=== PATIENT | female | born 1960 | race Caucasian/White ===

== ENCOUNTER 2017-10-16 09:20 | Emergency (ER) | payer OTHER, MEDICARE ==
[~2017-10-16] VITALS: Ht 162.6 cm; Wt 88.5 kg
[~2017-10-16 09:20] MED LIST: ARTHRITIS PAIN650 M5 PO; CHEWABLE MULTI1 EACH PO; COUMADIN1 MG PO; COUMADIN5 MG PO; Cleocin PO; Coumadin Protocol PO; Coumadin,Jantoven PO; DIAZEPAM5 MG PO; DULCOLAX5 MG PO; Dilaudid PO; FEOSOL325 MG PO; FERROUS SULFAT325 MG PO; Flintstones PO; HYDROMORPHONE HC2 MG PO; Hyzaar 50-12.5 PO; MORPHINE SULFAT15 M1 PO; MS Contin,Oramorph S PO; Senokot S,Pericolace PO; Tylenol Regular Stre PO; Valium PO; Vicodin,Norco 5/325 PO; WARFARIN SODIUM1 MG PO; Zofran PO
[2017-10-16 10:31] LABS: BASOPHIL (%) 0.4 % (0-1); EOSINOPHIL (%) 0.5 % (0-5); EOSINOPHIL COUNT 0.1 K/uL (0-0.3); HEMATOCRIT 39.8 % (36.0-46.0); HEMOGLOBIN 13.7 G/DL (11.9-15.5); IMMATURE GRANULOCYTE (%) 1.2 % (0.0-0.7); LYMPHOCYTE (%) 12.6 % (15-42); LYMPHOCYTE COUNT 1.4 K/uL (1.0-2.8); MCH 29.7 PG (29.0-34.0); MCHC 34.4 G/DL (30.0-36.0); MCV 86.3 FL (83-99); MONOCYTE (%) 4.1 % (3-12); MONOCYTE COUNT 0.5 K/uL (0-0.8); NEUTROPHIL (%) 81.2 % (45-76); PLATELET COUNT 397 K/uL (156-360); RBC DIS.WIDTH-CV 12.6 % (11.8-14.6); RBC DIS.WIDTH-SD 39.7 % (39-53); RED BLOOD COUNT 4.61 M/uL (3.80-5.20); WHITE BLOOD COUNT 11.1 K/uL (4.1-10.2)
[2017-10-16 10:41] LABS: CHLORIDE 107 mEq/L (99-109); POTASSIUM 3.6 mEq/L (3.7-5.4); SODIUM 140 mEq/L (136-147)
[2017-10-16 10:43] LABS: GLUCOSE 120 mg/dL (70-99)
[2017-10-16 10:47] LABS: CREATININE 0.8 mg/dL (0.6-1.3); GFR ESTIMATE (CALCULATED) > 59 mL/min/; UREA NITROGEN (BUN) 22 mg/dL (9-23)
[2017-10-16 13:42] VITALS: BP 133/75
== END 2017-10-16 13:42 | disposition short-term general hospital (02) ==
LOC: EME 09:20
PROVIDERS: Emergency Medicine
DX: I60.9 Nontraumatic subarachnoid hemorrhage, unspecified (principal); I67.1 Cerebral aneurysm, nonruptured; I10 Essential (primary) hypertension; E78.5 Hyperlipidemia, unspecified; E11.9 Type 2 diabetes mellitus without complications; Z79.01 Long term (current) use of anticoagulants; F17.200 Nicotine dependence, unspecified, uncomplicated
CPT/HCPCS: 70450; 70496; 70498; 80048; 85025; 99281; 99285; J1885; J1953; J3010; J7030; J7050

== ENCOUNTER 2017-11-03 14:21 | Emergency (ER) | payer OTHER, MEDICARE ==
[~2017-11-03] VITALS: Ht 162.6 cm; Wt 84.0 kg
[2017-11-03 15:06] LABS: HEMATOCRIT 37.5 % (36.0-46.0); HEMOGLOBIN 12.9 G/DL (11.9-15.5); MCH 30.6 PG (29.0-34.0); MCHC 34.4 G/DL (30.0-36.0); MCV 88.9 FL (83-99); PLATELET COUNT 436 K/uL (156-360); RBC DIS.WIDTH-CV 13.9 % (11.8-14.6); RBC DIS.WIDTH-SD 45.1 % (39-53); RED BLOOD COUNT 4.22 M/uL (3.80-5.20); WHITE BLOOD COUNT 12.5 K/uL (4.1-10.2)
[2017-11-03 15:14] LABS: CHLORIDE 105 mEq/L (99-109); POTASSIUM 3.8 mEq/L (3.7-5.4); SODIUM 140 mEq/L (136-147)
[2017-11-03 15:15] LABS: GLUCOSE 125 mg/dL (70-99)
[2017-11-03 15:19] LABS: CREATININE 0.8 mg/dL (0.6-1.3); GFR ESTIMATE (CALCULATED) > 59 mL/min/
[2017-11-03 15:20] LABS: UREA NITROGEN (BUN) 28 mg/dL (9-23)
[2017-11-03 15:43] LABS: TROP-I INTERPRETATION NEGATIVE; TROPONIN-I < 0.01 ng/mL (0.0-0.30)
[2017-11-03 17:09] VITALS: BP 118/78
== END 2017-11-03 17:17 | disposition home or self-care (01) ==
LOC: EME 14:21
PROVIDERS: Emergency Medicine
DX: R42 Dizziness and giddiness (principal); R51 Headache; W18.30XA Fall on same level, unspecified, initial encounter; I10 Essential (primary) hypertension; I67.1 Cerebral aneurysm, nonruptured; F41.9 Anxiety disorder, unspecified; E78.5 Hyperlipidemia, unspecified; E11.9 Type 2 diabetes mellitus without complications; F32.9 Major depressive disorder, single episode, unspecified; Z79.891 Long term (current) use of opiate analgesic; Z88.5 Allergy status to narcotic agent; Z88.6 Allergy status to analgesic agent; F17.200 Nicotine dependence, unspecified, uncomplicated; I25.2 Old myocardial infarction
CPT/HCPCS: 70450; 71046; 80048; 84484; 85027; 93005; 99281; 99285

== ENCOUNTER 2017-11-05 14:09 | Emergency (ER) | payer OTHER, MEDICARE ==
[~2017-11-05] VITALS: Ht 162.6 cm; Wt 85.0 kg
[2017-11-05 15:16] LABS: HEMATOCRIT 35.7 % (36.0-46.0); HEMOGLOBIN 12.1 G/DL (11.9-15.5); MCH 30.6 PG (29.0-34.0); MCHC 33.9 G/DL (30.0-36.0); MCV 90.2 FL (83-99); PLATELET COUNT 358 K/uL (156-360); RBC DIS.WIDTH-CV 13.9 % (11.8-14.6); RBC DIS.WIDTH-SD 45.7 % (39-53); RED BLOOD COUNT 3.96 M/uL (3.80-5.20); WHITE BLOOD COUNT 9.2 K/uL (4.1-10.2)
[2017-11-05 15:26] LABS: ALBUMIN 3.9 g/dL (3.2-4.8)
[2017-11-05 15:27] LABS: CHLORIDE 104 mEq/L (99-109); POTASSIUM 4.1 mEq/L (3.7-5.4); SODIUM 140 mEq/L (136-147)
[2017-11-05 15:29] LABS: GLUCOSE 98 mg/dL (70-99); TOTAL PROTEIN 6.7 g/dL (6.4-8.3)
[2017-11-05 15:31] LABS: TOTAL BILIRUBIN 0.2 mg/dL (0.0-1.0)
[2017-11-05 15:32] LABS: ALKALINE PHOSPHATASE 55 IU/L (3-129)
[2017-11-05 15:33] LABS: CREATININE 0.7 mg/dL (0.6-1.3); GFR ESTIMATE (CALCULATED) > 59 mL/min/
[2017-11-05 15:34] LABS: AST (GOT) 15 IU/L (2-34); UREA NITROGEN (BUN) 17 mg/dL (9-23)
[2017-11-05 15:36] LABS: ALT (GPT) 25 IU/L (3-49)
[2017-11-05 15:43] LABS: TROP-I INTERPRETATION NEGATIVE; TROPONIN-I < 0.01 ng/mL (0.0-0.30)
[2017-11-05] MEDS ORDERED: PERCOCET 5/31 TABLET PO (20:13)
[2017-11-05 20:30] VITALS: BP 136/73
== END 2017-11-05 20:33 | disposition home or self-care (01) ==
LOC: EME 14:09
PROVIDERS: Emergency Medicine Emergency Medical Services
DX: R53.1 Weakness (principal); R51 Headache; Z86.79 Personal history of other diseases of the circulatory system; E78.5 Hyperlipidemia, unspecified; I10 Essential (primary) hypertension; E11.9 Type 2 diabetes mellitus without complications; Z79.01 Long term (current) use of anticoagulants; F41.9 Anxiety disorder, unspecified; F32.9 Major depressive disorder, single episode, unspecified; F17.200 Nicotine dependence, unspecified, uncomplicated; Z88.5 Allergy status to narcotic agent; Z88.6 Allergy status to analgesic agent
CPT/HCPCS: 70470; 71045; 80053; 84484; 85027; 93005; 99281; 99285